=== PATIENT | female | born 1995 | race Caucasian/White ===

== ENCOUNTER 2018-08-24 21:17 | Emergency (ER) | payer BC, MEDICAID, OTHER ==
[~2018-08-24] VITALS: Ht 162.6 cm; Wt 99.5 kg
[2018-08-24 21:25] VITALS: Ht 162.6 cm; Wt 99.5 kg
[2018-08-24] MEDS ORDERED: KETOROLAC 30 MG INJ IM STA (23:08)
[2018-08-24] MEDS ORDERED: LORAZEPAM 1 MG TAB PO ONE (23:30)
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
[2018-08-25 01:25] VITALS: BP 123/78; PULSE 78; RESP 20
== END 2018-08-25 01:30 | disposition home or self-care (01) ==
LOC: FTE 21:17
DX: S60.221A Contusion of right hand, initial encounter (principal); S60.222A Contusion of left hand, initial encounter; S30.0XXA Contusion of lower back and pelvis, initial encounter; S50.11XA Contusion of right forearm, initial encounter; S80.11XA Contusion of right lower leg, initial encounter; Y04.2XXA Assault by strike against or bumped into by another person, initial encounter
CPT/HCPCS: 73010; 73080; 73130; 73510; 73550; 81025; 96372; J1885; Z7502; Z7610